=== PATIENT | male | born 1965 | race Two or more races ===

== ENCOUNTER 2025-02-19 15:29 | Emergency (ER) | payer MEDICAID, SELFPAY ==
[2025-02-19 15:30] VITALS: BMI 27.1
--- NOTE | 2025-02-19 15:35 | EKG_ITS ---
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
[2025-02-19 15:49] VITALS: BP 169/87; PULSE 59; RESP 18; TEMP 36.7; O2SAT 96
--- NOTE | 2025-02-19 16:10 | PC.NURSE ---
PT CALLED BACK FOR RME. NO RESPONSE X1 @0190. CHECKED LOBBY AND OUTSIDE
--- NOTE | 2025-02-19 16:11 | XR_ITS ---
Examination: PA and lateral chest 2 views TECHNIQUE: Upright PA and lateral chest 2 views Date and time: February 19, 2025 1655 hours INDICATIONS: Chest pain beginning today. FINDINGS: Minimal prominence left ventricle on the lateral view. No pneumonia or pulmonary edema. The osseous structures are intact IMPRESSION: No active disease
--- NOTE | 2025-02-19 16:13 | PD.EDRME ---
Rapid Medical Screening Exam RME Arrival date/time: 02/19/25 15:29 Time Seen by Provider: 02/19/25 16:08 Vital signs: Vital Signs Temperature 98.1 F 02/19/25 15:49 Pulse Rate 59 L 02/19/25 15:49 Respiratory Rate 18 02/19/25 15:49 Blood Pressure 169/87 H 02/19/25 15:49 Pulse Oximetry (%) 96 02/19/25 15:49 Oxygen Delivery Method Room Air 02/19/25 15:49 Vital signs reviewed by provider: Yes RME Narrative: Patient is a 60-year-old male with medical history notable for hypertension that in the emergency department concerns for acute chest pain that started on and off for the last 4 days. Denies fevers chills upper extremity pain, weakness. Denies dysuria hematuria melena bloody stools. Denies recent travel sick contacts. No cough runny nose. Endorses occasional nausea.
[2025-02-19] MEDS: ONDANSETRON ODT 4 MG TABRAP PO (16:25)
[2025-02-19] MEDS: ASPIRIN EC 81 MG TABEC PO (16:25)
[2025-02-19 16:29] LABS: Basophils # (Auto) 0.1 Thou/mm3 (0.0-0.2); Basophils % (Auto) 1 % (0-2.5); Eosinophils # (Auto) 0.2 Thou/mm3 (0.0-0.5); Eosinophils % (Auto) 2 % (0-10); Hematocrit 40.8 % (41.0-53.0); Hemoglobin 13.8 g/dL (13.5-16.0); Immature Granulocytes Auto 0.03 Thou/mm3 (0.00-0.00); Lymphocytes # (Auto) 2.6 Thou/mm3 (1.0-4.8); Lymphocytes % (Auto) 37 % (10-50); Mean Corpuscular HGB Conc 33.8 g/dl (31.0-37.0); Mean Corpuscular Hemoglobin 28.9 pg (25.0-35.0); Mean Corpuscular Volume 86 fL (80-100); Monocytes # (Auto) 0.5 Thou/mm3 (0.0-0.8); Monocytes % (Auto) 7 % (0-12); Neutrophils # (Auto) 3.8 Thou/mm3 (1.8-7.7); Neutrophils % (Auto) 53 % (37-80); Nucleated Red Blood Cell # 0.00 Thou/mm3 (0.00-0.00); Nucleated Red Blood Cell % 0 /100 WBC (0); Platelet Count 246 Thou/mm3 (140-440); RDW Standard Deviation 40.9 fL (35.1-43.9); Red Blood Count 4.77 Miln/mm3 (4.50-5.90); White Blood Count 7.1 Thou/mm3 (3.8-10.6)
[2025-02-19 16:56] LABS: T4 (Thyroxine) 8.4 mcg/dL (4.5-10.9)
[2025-02-19 16:57] LABS: Alanine Aminotransferase 21 U/L (10-49); Albumin, Serum 4.5 gm/dL (3.5-5.0); Albumin/Globulin Ratio 1.7 (1.2-2.2); Alkaline Phosphatase 61 U/L (46-116); Anion Gap 12 (7-16); Aspartate Amino Transferase 26 U/L (0-34); BUN/Creatinine Ratio 11 Ratio (12-20); Bilirubin,Total 0.4 mg/dL (0.3-1.2); Blood Urea Nitrogen 16 mg/dL (9-23); Calcium 10.0 mg/dL (8.3-10.6); Calcium (Corrected) 10.0 mg/dL (8.5-10.1); Carbon Dioxide 25.4 mMol/L (20.0-31.0); Chloride 105 mMol/L (98-107); Creatinine (Component) 1.5 mg/dL (0.6-1.3); Estimated Creatinine Clearance 49.9 mL/min (>60); Globulin 2.7 gm/dL (2.3-3.5); Glucose 99 mg/dL (74-106); Lipase 34 U/L (12-53); Osmolality,Calculated 284 (275-295); Potassium 3.5 mMol/L (3.4-5.1); Sodium 142 mMol/L (136-145); Thyroid Stimulating Hormone 2.01 uIU/mL (0.55-4.78); Total Protein 7.2 gm/dL (5.7-8.2); Troponin I < 0.020 ng/mL (0.0-0.045); eGFR 53 See Note
[2025-02-19 18:30] VITALS: BP 163/90; PULSE 53; RESP 19; TEMP 36.7; O2SAT 97
[2025-02-19 19:14] LABS: Troponin I < 0.020 ng/mL (0.0-0.045)
--- NOTE | 2025-02-19 20:20 | EDNOTE_ITS ---
ED Chest Pain RME/HPI General Chief Complaint: Chest Pain Stated Complaint: CHEST PAIN SINCE 1455 Time Seen by Provider: 02/19/25 16:08 Arrival date/time: 02/19/25 15:29 RME / HPI RME / HPI narrative: Patient is a 60-year-old male with medical history notable for hypertension that in the emergency department concerns for acute chest pain that started on and off for the last 4 days. Denies fevers chills upper extremity pain, weakness. Denies dysuria hematuria melena bloody stools. Denies recent travel sick contacts. No cough runny nose. Endorses occasional nausea. Dr. Michel?s Main ED Evaluation: 60yo male with a history of HTN presents to the ED for a chief complaint of intermittent left-sided chest pain x 4 days. No radiation or migration. Patient states his pain significantly worsened this afternoon and lasted for 5 minutes, so he came in for evaluation. Denies any other associated symptoms. Patient denies any history of DM or HLD. Denies any tobacco use. NKA. Patient states he feels much better now. Related Data Home Medications ?Medication ?Instructions ?Recorded ?Confirmed No Known Home Medications 07/21/20 05/0 09/16 Allergies Allergy/AdvReac Type Severity Reaction Status Date / Time No Known Allergies Allergy Verified 02/19/25 15:34 Review of Systems Review of Systems Systems Reviewed: All systems reviewed, normal except as documented Past Medical History Past Medical History NEUROLOGIC: Negative Seizures CARDIAC: Positive Hypertension; Negative Congestive Heart Failure RESPIRATORY: Negative Chronic Obstructive Pulmonary Disease (COPD) GENITOURINARY: Negative Renal Disease ENDOCRINE: Negative Diabetes Mellitus Type 1 or Diabetes Mellitus Type 2 OTHER HISTORY: Negative Hospitalization, Blood Transfusions, Blood Transfusion Reaction or Anesthesia Reactions Social History SMOKING STATUS: Never smoker SUBSTANCE USE: does not use ED Exam Narrative Physical exam: Generally patient is alert in no obvious distress, heart is regular rate and rhythm, lungs clear to auscultation equal bilaterally, abdomen soft bowel sounds present nondistended nontender without palpable mass, skin is warm pale and dry, neurologic exam Maisha Coma Scale is 15 without focal motor deficits Course Course Course Narrative: CXR is ordered for determining the etiology of chest pain. Quality Measures none Orders Category Date Time Status Bedside COVID-19 Antigen Test NOW Care 02/19/25 16:12 Active Bedside Influenza A&B Antigen Test NOW Care 02/19/25 16:12 Completed EKG (ED ONLY) *Do not use* NOW Care 02/19/25 15:35 Completed CXR2 [XR chest 2V] Stat Exams 02/19/25 16:11 Completed EKG (ED Only) Stat Exams 02/19/25 15:35 Draft CBC Stat Lab 02/19/25 16:21 Completed CMP [Comprehensive Metabolic Panel] Stat Lab 02/19/25 16:21 Completed Lipase Stat Lab 02/19/25 16:21 Completed T4 (Thyroxine) Stat Lab 02/19/25 16:21 Completed TSH [Thyroid Stimulating Hormone] Stat Lab 02/19/25 16:21 Completed Troponin I Stat Lab 02/19/25 16:21 Completed Troponin I Stat Lab 02/19/25 18:48 Completed Aspirin [Ecotrin] Med 02/19/25 16:11 Discontinued 81 mg PO X1 ONE Ondansetron Odt [Zofran Odt] Med 02/19/25 16:14 Discontinued 4 mg PO X1 ONE Vital Signs Vital signs: Vital Signs Temperature 98.1 F 02/19/25 15:49 Pulse Rate 59 L 02/19/25 15:49 Respiratory Rate 18 02/19/25 15:49 Blood Pressure 169/87 H 02/19/25 15:49 Pulse Oximetry (%) 96 02/19/25 15:49 Oxygen Delivery Method Room Air 02/19/25 15:49 Chest Pain MDM Narrative MDM Narrative:: Scribe Attestation: 02/19/25 Pamela Li am scribing for and in the presence of Dr. Michel. Patient is chest pain-free at the time my evaluation. EKG done at 3:46 PM shows sinus bradycardia at a rate of 57 without ischemic change or ectopy. 2 separate troponins each were nonelevated. Patient is chest pain-free at the time of discharge. Patient's heart score is 2. Patient will be discharged in stable condition to follow-up with primary care for further treatment and evaluation. Patient data External records reviewed:: [facility] previous records (Per chart review, patient was admitted here on 10/29/20 for acute cholecystitis.) Clinical information provided by:: patient Social determinants that could affect healthcare access:: none Patient has the following chronic illnesses:: HTN How is presenting disease/condition affected by chronic disease/condition?: uneffected by Evaluation data The following diagnostics were reviewed and interpreted by me:: lab results, radiology exam(s) and EKG tracing(s) Lab and/or radiology exams considered but not ordered:: none Interpretation Summary: [facility] Report Signed Patient: LEONCIO HOLGUIN Record#: [id number] Birthdate: 1965 Age/Sex: 60 / M Location: [facility] Attending Dr: Ordering Physician: Sophia Elkins MD Date of Service: 02/19/25 Procedure(s): XR chest 2V Accession Number(s): [id number] cc: Rachel Brown; Bebeto Lopez MD; Sophia Elkins MD~ Examination: PA and lateral chest 2 views TECHNIQUE: Upright PA and lateral chest 2 views Date and time: February 19, 2025 1655 hours INDICATIONS: Chest pain beginning today. FINDINGS: Minimal prominence left ventricle on the lateral view. No pneumonia or pulmonary edema. The osseous structures are intact IMPRESSION: No active disease Dictated By: Bebeto Lopez MD Signed By: <Electronically signed by Bebeto Lopez MD in OV> 02/19/25 1820 Medications / Prescriptions Medications or Prescriptions considered but not ordered:: none Medication administrations:: Medication Administration History Discontinued Medications Aspirin (Aspirin Ec 81 Mg Tabec) 81 mg PO X1 ONE Stop: 02/19/25 16:12 Last Admin: 02/19/25 16:25 Dose: 81 mg Documented By: ADRIÁN Ondansetron HCl (Ondansetron Odt 4 Mg Tabrap) 4 mg PO X1 ONE; Protocol Stop: 02/19/25 16:15 Last Admin: 02/19/25 16:25 Dose: 4 mg Documented By: ADRIÁN see above Consultations Consultation(s) initiated? (list below): No Diagnosis Chest Pain Differential Diagnosis: atypical chest pain, st elevation myocardial infarction, costochondritis, chest pain and other (NSTEMI) Most likely diagnosis given after review of the tests above:: see clinical impression below Admission Indicated Admission indicated?: not indicated Explain why admission is indicated or not indicated:: With significant improvement and no condition needing emergent intervention, there was no indication for admission. Admission Request Was there a request for admission?: No Disposition Plan Disposition Plan: Discharge Discharge Attestation Discharge Attestation: The patient and all family members were given an opportunity to ask questions and understood the discharge instructions. Discharge instructions specifically effects, indications for sooner follow up or return to the emergency department, and the expected course of current diagnosis. Patient condition: Stable Discharge Plan Plan Patient Disposition: HOME (Self Care) Prescriptions/Referrals Prescriptions/Med Rec: No Action No Known Home Medications Referrals: Rachel Brown FNP [Primary Care Provider] - In 1 week Problem List Clinical Impression: Chest pain Patient/Caregiver Discharge Instructions Education Materials: ED Chest Pain, Uncertain Cause Additional Instructions: Continue current medication. Follow-up with your doctor for further treatment and evaluation. Return to ER if pain becomes more frequent or lasts longer or becomes more intense. Print Language: Citizen Of [place] Stand Alone Forms: Nancy Award Info., Patient Portal Info Letter
[2025-02-19 20:37] VITALS: BP 161/88; PULSE 53; RESP 17; TEMP 36.7; O2SAT 99
== END 2025-02-19 20:39 | disposition home or self-care (01) ==
PROVIDERS: Emergency Medicine; Emergency Provider Emergency Medicine; PCP Registered Nurse Community Health
DX: R07.9 Chest pain, unspecified (principal); I10 Essential (primary) hypertension
CPT/HCPCS: 36415; 71046; 80053; 83690; 84436; 84443; 84484; 85025; 87400; 87811; 93005; 99283; Q0162; A9270

== ENCOUNTER → 2025-02-28 | Outpatient (CLI) | payer MEDICAID, SELFPAY ==
--- NOTE | 2025-02-28 09:33 | XR_ITS ---
Examination: Abdomen AP single view Technique: AP portable supine abdomen, single view Exam date and time: February 28, 2025 0936 hours INDICATIONS: Abdominal pain beginning 4 years ago. FINDINGS: Moderate stool throughout the colon. No obstruction. No free air. Surgical clips upper right abdomen IMPRESSION: Moderate stool throughout the colon.
--- NOTE | 2025-02-28 09:45 | XR_ITS ---
Examination: Abdomen sonogram, complete Date and time of exam: February 28, 2025 0951 hours INDICATIONS: Onset right-sided abdominal pain beginning 4 years ago.. Technique: Multiple real-time grayscale transabdominal sonographic images of the abdomen have been obtained. Findings: Absent gallbladder Common bile duct 0.9 cm no stones Pancreatic head 3.2 cm Aorta not enlarged. Liver 14.8 cm fatty infiltration Normal hepatopedal portal venous flow Patent IVC Right kidney 10.4 cm cortex 1.6 cm Left kidney 9.5 cm cortex 1.9 cm Spleen 10.1 cm IMPRESSION: Enlarged common bile duct 0.9 cm, clinical correlation advised. If biliary colic is a clinical consideration, consider MRCP follow-up
== END | disposition home or self-care (01) ==
LOC: CDIM 09:21
PROVIDERS: PCP Registered Nurse Community Health; Referring Provider Registered Nurse Community Health; Visit Provider Registered Nurse Community Health
DX: K59.00 Constipation, unspecified (principal); K83.8 Other specified diseases of biliary tract
CPT/HCPCS: 74018; 76700